=== PATIENT | female | born 1960 | race Caucasian/White ===

== ENCOUNTER 2022-09-05 13:30 | Outpatient (RCR) | payer OTHER, SELFPAY ==
--- NOTE | 2022-08-29 13:14 | URNOTE ---
Received request for prior auth for Topotecan ([id number]), Neulasta ([id number]), Kytril ([id number]). Per Zoë at [facility], prior authorizaiton is not required for these medications. Call ref #[id number]
--- NOTE | 2022-08-29 14:19 | ONC.NURNOTE ---
Current antiemetics at home ondansetron 8mg - many tabs with 2 refills prochlorperazine 10 mg #3 tabs with no refills after 09/17/22
[2022-09-02 13:19] VITALS: BP 121/82; PULSE 72; RESP 20; TEMP 36.8; O2SAT 92
[2022-09-02 14:09] LABS: Albumin* 3.6 g/dL (3.3-5.0); Chloride* 106 mmol/L (96-114); Sodium* 140 mmol/L (135-149)
[2022-09-02 14:10] LABS: Eosinophils Absolute Auto 0.03 K/uL (0.00-0.50); Eosinophils Percent Auto 0.3 % (0.0-7.0); Hematocrit 40.5 % (33.0-51.0); Hemoglobin* 13.5 gm/dL (12.0-16.0); Immature Granulocytes Abs Auto 0.57 K/uL (0.00-0.30); Immature Granulocytes Pct Auto 5.4 %; Lymphocytes Percent Auto 3.7 % (20-44); Mean Corpuscular HGB Conc 33 gm/dL (32-36); Mean Corpuscular Hemoglobin 31 pg (26-34); Mean Corpuscular Volume 93 fL (80-100); Monocytes Percent Auto 7.8 % (0.0-11.0); Neutrophils Percent Auto 82.8 % (42.0-72.0); Platelet Count* 57 K/uL (140-440); RDW Coefficient of Variation % 14.9 % (11.5-15.5); Red Blood Count 4.37 m/uL (4.00-5.20); White Blood Count* 10.58 K/uL (4.50-11.00)
[2022-09-02 14:12] LABS: Alkaline Phosphatase* 307 U/L (40-150); Aspartate Amino Transferase* 131 U/L (12-35); Bilirubin Total* 0.8 mg/dL (0.1-1.5); Blood Urea Nitrogen* 12 mg/dL (7-30); Carbon Dioxide* 32 mmol/L (20-32); Creatinine* 0.8 mg/dL (0.5-1.5); Est. Creatinine Clearance* 64.58; Estimated Glomerular Filt Rate 84 ml/min; Slide Review Reflex No; Total Protein* 6.5 g/dL (6.0-8.3)
[2022-09-02 14:13] LABS: Alanine Aminotransferase* 73 U/L (4-35); Calcium* 8.8 mg/dL (8.4-10.6); Glucose* 87 mg/dL (60-115)
[2022-09-02 14:21] LABS: Potassium* 2.7 mmol/L (3.6-5.1)
--- NOTE | 2022-09-02 14:54 | ONC.NURNOTE ---
New start topotecan, neulasta reviewed possible side effects reveiwed contents of new patient chemo binder discussed management of fever, and calling with other concerns/going to local MD if needed reviewed antiemetics rec taking clarirtin starting Friday am thru Friday am, the day before Neulasta starts on Friday patient takes olanzepine every evening and oxycodone prn questions addressed and consent for treatment, CARLOS EDUARDO all signed
[2022-09-02] MEDS: POTASSIUM CHLORIDE 10 MEQ/100 ML PIGGYBACK 100 MEQ IVPB (15:11)
[2022-09-02 15:12] LABS: Magnesium* 1.7 mg/dL (1.5-2.6)
[2022-09-02] MEDS: POTASSIUM CHLORIDE 10 MEQ CAPSULE ER 40 MEQ PO (15:58)
--- NOTE | 2022-09-03 09:12 | ONC.NURNOTE ---
PSDS done 09/02/22 = 2 with no noted concerns patient was informed of SS consult if anything changes- may be set up at anytime
[2022-09-05 10:54] LABS: Basophils Percent Auto 0.3 % (0.0-3.0); Eosinophils Percent Auto 0.3 % (0.0-7.0); Hematocrit 40.6 % (33.0-51.0); Hemoglobin* 13.5 gm/dL (12.0-16.0); Immature Granulocytes Pct Auto 3.9 %; Lymphocytes Percent Auto 4.6 % (20-44); Mean Corpuscular HGB Conc 33 gm/dL (32-36); Mean Corpuscular Hemoglobin 31 pg (26-34); Mean Corpuscular Volume 93 fL (80-100); Monocytes Percent Auto 8.3 % (0.0-11.0); Neutrophils Percent Auto 82.6 % (42.0-72.0); RDW Coefficient of Variation % 15.4 % (11.5-15.5); Red Blood Count 4.36 m/uL (4.00-5.20); White Blood Count* 11.13 K/uL (4.50-11.00)
[2022-09-05 10:57] LABS: Albumin* 3.5 g/dL (3.3-5.0); Chloride* 107 mmol/L (96-114)
[2022-09-05 10:58] LABS: Potassium* 3.1 mmol/L (3.6-5.1)
[2022-09-05 11:00] LABS: Bilirubin Total* 1.2 mg/dL (0.1-1.5); Carbon Dioxide* 28 mmol/L (20-32); Creatinine* 0.8 mg/dL (0.5-1.5); Est. Creatinine Clearance* 64.58; Estimated Glomerular Filt Rate 84 ml/min; Total Protein* 6.5 g/dL (6.0-8.3)
[2022-09-05 11:01] LABS: Alanine Aminotransferase* 89 U/L (4-35); Alkaline Phosphatase* 443 U/L (40-150); Aspartate Amino Transferase* 181 U/L (12-35); Blood Urea Nitrogen* 11 mg/dL (7-30); Calcium* 8.7 mg/dL (8.4-10.6); Glucose* 118 mg/dL (60-115)
[2022-09-05 11:13] LABS: Sodium* 141 mmol/L (135-149)
[2022-09-05 11:49] LABS: Platelet Count* 45 K/uL (140-440); Slide Review Reflex Yes
[2022-09-05 11:50] LABS: Slide Review Acceptable Review (Acceptable)
[2022-09-05] MEDS: HEPARIN 500 UNIT/5 ML SYRINGE IVF (13:25)
[2022-09-05] MEDS: SODIUM CHLORIDE 0.9 % (FLUSH) 10 ML SYRINGE IVF (13:26)
--- NOTE | 2022-09-06 14:30 | ONC.NURNOTE ---
Arianna called and wondered when her bone marrow biopsy is . per Dr. Rodriguez note she is to have a bone marrow biopsy next week. Left a message with Judy Sood phlebotomy director to set up and call pt. Pt called and aware
--- NOTE | 2022-09-11 09:28 | ONC.NURNOTE ---
Patient called with confusion regarding appointments coming up. Facility Maintenance Supervisor able to call and have patient write down appointments for next two days with detail and patient verbalized understanding. 09/11-Today (commercial real estate underwriter verified appointment with clinic and gave them fax number to fax H&P to [phone]) at [phone] Harding at [phone] [facility] in [place] for Pre-op 09/12-tomorrow patient to go to [facility] emergency entrance for bonemarrow biopsy at [phone] Facility Maintenance Supervisor let patient know she would be sure there would be a calendar for her next appointments.
--- NOTE | 2022-09-12 12:15 | PC.NURSE ---
Received a call from recovery specialist with an update following Arianna's BMBX. Pt's puncture site oozed and saturated through her initial pressure dressing, so ANDRA SEGURA placed a suture (non-dissolvable) in the puncture site. Pt will be present at [facility] on , 09/19/2022 and RN asked that the suture be removed at that time. [facility] staff will do so when pt is present.
== END 2023-03-01 23:59 | disposition home or self-care (01) ==
LOC: CCIC 13:30
PROVIDERS: Clinical Nurse Specialist; Internal Medicine Medical Oncology; Visit Provider Internal Medicine Hematology & Oncology
DX: C34.90 Malignant neoplasm of unspecified part of unspecified bronchus or lung (principal); C79.31 Secondary malignant neoplasm of brain; G89.3 Neoplasm related pain (acute) (chronic); E87.6 Hypokalemia; R74.01 Elevation of levels of liver transaminase levels; D69.6 Thrombocytopenia, unspecified; Z79.01 Long term (current) use of anticoagulants
CPT/HCPCS: 36415; 36591; 80053; 83735; 85025; 96365; 99202; 99205; 99211; 99212; 99213; 99215; A9270; J1642; J3480

== ENCOUNTER 2022-09-12 09:53 | Outpatient (CLI) | payer OTHER, SELFPAY ==
[2022-09-12] VITALS (7 sets, daily range): BP systolic 100–124; BP diastolic 60–80; PULSE 68–76; RESP 16–18; TEMP 32.8; O2SAT 93–99; BMI 171.1
--- NOTE | 2022-09-12 11:30 | W.ANESCHARGE ---
Anesthesia Charges Start Date/Time Anesthesia Start Date: 09/12/22 Anesthesia Start Time: 11:10 Stop Date/Time Anesthesia Stop Date: 09/12/22 Anesthesia Stop Time: 11:28 Summary Emergency: No
--- NOTE | 2022-09-12 11:33 | W.ANESCHARGE ---
Anesthesia Charges Start Date/Time Anesthesia Start Date: 09/12/22 Anesthesia Start Time: 11:10 Stop Date/Time Anesthesia Stop Date: 09/12/22 Anesthesia Stop Time: 11:28 Summary Emergency: No
[2022-09-12 11:39] LABS: Basophils Absolute Auto 0.01 K/uL (0.00-0.30); Basophils Percent Auto 0.1 % (0.0-3.0); Hemoglobin* 13.2 gm/dL (12.0-16.0); Immature Granulocytes Abs Auto 0.44 K/uL (0.00-0.30); Immature Granulocytes Pct Auto 4.4 %; Immature Reticulocyte Fraction 28.7 % (3.0-15.9); Lymphocytes Percent Auto 7.2 % (20-44); Mean Corpuscular HGB Conc 34 gm/dL (32-36); Mean Corpuscular Hemoglobin 31 pg (26-34); Mean Corpuscular Volume 91 fL (80-100); Monocytes Percent Auto 8.5 % (0.0-11.0); Neutrophils Percent Auto 79.8 % (42.0-72.0); RDW Coefficient of Variation % 18.2 % (11.5-15.5); Red Blood Count 4.29 m/uL (4.00-5.20); Reticulocyte Hemoglobin Equivi 31.2 pg (29.0-35.0); Reticulocyte Percent 1.4 % (0.5-2.0); Reticulocytes Absolute 0.06 # (0.03-0.08)
[2022-09-12 12:42] LABS: Platelet Count* 41 K/uL (140-440)
--- NOTE | 2022-09-12 13:01 | ED.GENADULT ---
HPI - General Adult General Source: patient and RN notes reviewed Limitations: no limitations History of Present Illness HPI narrative: I was asked to see this patient status post a bone marrow biopsy secondary to continued bleeding from the biopsy site. Patient had no complaints. Related Data Home Medications Medication Instructions Recorded Confirmed albuterol 90 mcg/actuation aerosol 90 mcg inhalation Q4-6H PRN 08/22/22 09/05/22 inhaler apixaban 5 mg tablet 5 mg PO BID 08/22/22 09/05/22 aspirin 81 mg tablet,delayed 81 mg PO DAILY 08/22/22 09/05/22 release (Adult Aspirin Regimen) atorvastatin 40 mg tablet 40 mg PO DAILY 08/22/22 09/05/22 dexamethasone 1 mg tablet 0.5 mg PO DAILY 08/22/22 09/05/22 fluticasone propionate 50 2 spray intranasal DAILY PRN 08/22/22 09/05/22 mcg/actuation nasal spray,suspension ipratropium 0.5 mg-albuterol 3 mg 3 ml inhalation QID PRN 08/22/22 09/05/22 (2.5 mg base)/3 mL nebulization soln lorazepam 0.5 mg tablet 0.5 mg PO Q6H PRN 08/22/22 09/05/22 memantine 10 mg tablet 10 mg PO BID 08/22/22 09/05/22 metoprolol tartrate 25 mg tablet 25 mg PO BID 08/22/22 09/05/22 olanzapine 5 mg tablet 5 mg PO QHS 08/22/22 09/05/22 omeprazole 20 mg capsule,delayed 20 mg PO DAILY 08/22/22 09/05/22 release ondansetron 8 mg disintegrating 8 mg PO Q8-12H PRN 08/22/22 09/05/22 tablet oxycodone 5 mg capsule 5 mg PO Q4-6H PRN 08/22/22 09/05/22 polyethylene glycol 3350 17 17 g PO DAILY 08/22/22 09/05/22 gram/dose oral powder (Miralax) prednisone 10 mg tablet 10 mg PO DAILY 08/22/22 09/05/22 sennosides 8.6 mg-docusate sodium 1 tab-cap PO BID 08/22/22 09/05/22 50 mg capsule (Senna Plus) sodium chloride 1,000 mg soluble 2,000 mg PO BID 08/22/22 09/05/22 tablet torsemide 5 mg tablet 5 mg PO BID 08/22/22 09/05/22 magnesium chloride 71.5 mg 71.5 mg PO QDAY 09/05/22 09/05/22 (magnesium chloride) tablet,delayed release (Slow-Mag) Previous Rx's Medication Instructions Recorded prochlorperazine maleate 10 mg 10 mg PO TID PRN nausea and 08/29/22 tablet vomiting #30 tabs potassium chloride 20 mEq 40 meq PO QDAY #60 tabs 09/02/22 tablet,extended release Allergies Allergy/AdvReac Type Severity Reaction Status Date / Time bee venom protein (honey bee) Allergy Hives Verified 09/05/22 11:07 peanut butter Allergy Unknown Unknown Uncoded 08/29/22 10:50 [facility] Medical History (Updated 09/05/22 @ 13:23 by Suzanne Farrell MD) Anemia Anxiety Atrial fibrillation Hypomagnesemia Hyponatremia Right-sided cerebrovascular accident (CVA) SIADH (syndrome of inappropriate ADH production) Thrombocytopenia Exam Narrative: Exam Narrative: well-developed patient in no acute distress. Answers questions appropriately, cooperative. At the biopsy site on the right lower back, patient has approximately a 5-6 mm incision with a moderate-sized hematoma underneath the skin. Very is not tender. She has some oozing from the incision. Const: Vital Signs, click to edit/add: Vital Signs - 24 hr 09/12/22 10:40 09/12/22 11:36 09/12/22 11:38 Temperature 91.1 F L Pulse Rate [Right Pulse Oximeter] 74 70 69 Respiratory Rate 16 16 Blood Pressure [Le ft Arm] 118/60 102/71 111/77 Pulse Oximetry 98 93 93 Oxygen Delivery Me thod Nasal Cannula Room Air Room Air Oxygen Flow Rate 3 09/12/22 11:49 09/12/22 12:12 09/12/22 11:29 Temperature Pulse Rate [Right Pulse Oximeter] 69 76 74 Respiratory Rate 16 18 16 Blood Pressure [Le ft Arm] 100/64 102/63 108/74 Pulse Oximetry 93 99 95 Oxygen Delivery Me thod Room Air Room Air Oxygen Flow Rate 09/12/22 11:44 Temperature Pulse Rate [Right Pulse Oximeter] 68 Respiratory Rate 16 Blood Pressure [Le ft Arm] 124/80 Pulse Oximetry 93 Oxygen Delivery Me thod Room Air Oxygen Flow Rate Course Course Hospital Course: Area was cleaned and anesthetized with lidocaine with epinephrine. And 1 hemostatic suture was placed with 3-0 Ethilon. Hemostasis achieved. Vital Signs Vital signs: Initial Vital Signs Temperature 91.1 F L 09/12/22 10:40 Temperature Source Temporal Artery Scan 09/12/22 10:40 Pulse Rate 74 09/12/22 10:40 Pulse Rhythm 09/12/22 10:40 Respiratory Effort Short of Breath 09/12/22 10:40 Respiratory Depth Shallow 09/12/22 10:40 Respiratory Pattern 09/12/22 10:40 Blood Pressure 118/60 09/12/22 10:40 Blood Pressure Mean 79 09/12/22 10:40 Blood Pressure Position Supine 09/12/22 10:40 Pulse Oximetry 98 09/12/22 10:40 Oxygen Delivery Method 09/12/22 10:40 Oxygen Flow Rate 3 09/12/22 10:40 Vital Signs Temperature 91.1 F L 09/12/22 10:40 Pulse Rate 74 09/12/22 10:40 Blood Pressure 118/60 09/12/22 10:40 Pulse Oximetry 98 09/12/22 10:40 Oxygen Delivery Method 09/12/22 10:40 Oxygen Flow Rate 3 09/12/22 10:40 Temperature 91.1 F L 09/12/22 10:40 Pulse Rate 76 09/12/22 12:12 Respiratory Rate 18 09/12/22 12:12 Blood Pressure 102/63 09/12/22 12:12 Pulse Oximetry 99 09/12/22 12:12 Oxygen Delivery Method 09/12/22 12:12 Oxygen Flow Rate 3 09/12/22 10:40 Medical Decision Making MDM Narrative Medical decision making narrative: 8-year-old female with bleeding from biopsy site, sutured per above. I did recommend that nursing call the pathologist to let her know about the hematoma that is present underneath the skin. Recommend suture removal in approximately 5-7 days. Lab Data Labs: Lab Results 09/12/22 Range/Units 10:55 WBC 10.00 (4.50-11.00) K/uL RBC 4.29 (4.00-5.20) m/uL Hgb 13.2 (12.0-16.0) gm/dL Hct 39.0 (33.0-51.0) % MCV 91 (80-100) fL MCH 31 (26-34) pg MCHC 34 (32-36) gm/dL RDW Coeff of Calvni 18.2 H (11.5-15.5) % Plt Count 41 L* (140-440) K/uL Neut % (Auto) 79.8 H (42.0-72.0) % Lymph % (Auto) 7.2 L (20-44) % Coles % (Auto) 8.5 (0.0-11.0) % Eos % (Auto) 0.0 (0.0-7.0) % Baso % (Auto) 0.1 (0.0-3.0) % Neut # (Auto) 8.00 H (1.7-7.0) K/uL Lymph # (Auto) 0.70 L (0.90-2.90) K/uL Coles # (Auto) 0.90 (0.00-0.90) K/UL Eos # (Auto) 0.00 (0.00-0.50) K/uL Baso # (Auto) 0.01 (0.00-0.30) K/uL Absolute Retic 0.06 (0.03-0.08) # Percent Retic 1.4 (0.5-2.0) % Immature Retic Fraction 28.7 H (3.0-15.9) % Retic Hgb Equivalent 31.2 (29.0-35.0) pg Discharge Plan Discharge Disposition: Home, Self-Care Primary Care Provider: Provider,Not a Local Patient Instructions: Bone Marrow Biopsy MAC ([place]) Activity Restrictions/Additional Instructions: Patient verbalized understanding of reviewed discharge instructions. Discharge Medications: No Action potassium chloride 20 mEq tablet extended release 40 meq PO QDAY Qty: 60 0RF albuterol 90 mcg/actuation aerosol 90 mcg inhalation Q4-6H PRN apixaban 5 mg tablet 5 mg PO BID aspirin [Adult Aspirin Regimen] 81 mg tablet,delayed release (DR/EC) 81 mg PO DAILY atorvastatin 40 mg tablet 40 mg PO DAILY dexamethasone 1 mg tablet 0.5 mg PO DAILY fluticasone propionate 50 mcg/actuation spray,suspension 2 spray intranasal DAILY PRN Rx Instructions: administer into each nostril ipratropium-albuterol 0.5 mg-3 mg(2.5 mg base)/3 mL solution for nebulization 3 ml inhalation QID PRN lorazepam 0.5 mg tablet 0.5 mg PO Q6H PRN memantine 10 mg tablet 10 mg PO BID metoprolol tartrate 25 mg tablet 25 mg PO BID olanzapine 5 mg tablet 5 mg PO QHS omeprazole 20 mg capsule,delayed release(DR/EC) 20 mg PO DAILY ondansetron 8 mg tablet,disintegrating 8 mg PO Q8-12H PRN oxycodone 5 mg capsule 5 mg PO Q4-6H PRN polyethylene glycol 3350 [Miralax] 17 gram/dose powder 17 g PO DAILY prednisone 10 mg tablet 10 mg PO DAILY Senna Plus 8.6-50 mg capsule 1 tab-cap PO BID sodium chloride 1,000 mg tablet,soluble 2,000 mg PO BID torsemide 5 mg tablet 5 mg PO BID Slow-Mag 71.5 mg tablet,delayed release (DR/EC) 71.5 mg PO QDAY prochlorperazine maleate 10 mg tablet 10 mg PO TID PRN (Reason: nausea and vomiting) Qty: 30 1RF Rx Instructions: If needed for chemotherapy related nausea or vomiting. Doses to be at least 4 hours apart. Forms: [facility] Info Instructions
[2022-09-13 03:14] LABS: Slide Review Reflex No
== END 2022-09-12 12:27 | disposition home or self-care (01) ==
PROVIDERS: Visit Provider Internal Medicine Hematology & Oncology
DX: D69.6 Thrombocytopenia, unspecified (principal)
CPT/HCPCS: 01112; 36415; 38222; 85025; 85045; 88237; 88264; 88305; 88311; 88313; 88341; 88342; 88360; 99282; J1644; J2001; J2704